=== PATIENT | female | born 1955 | race Caucasian/White ===

== ENCOUNTER → 2019-01-21 | Outpatient (CLI) | payer OTHER ==
[~2019-01-21] MED LIST: ATOR10TA9 PO; CBD cream TP; DULO30CA2 PO; [UNRECOGNIZED DRUG - OTHER] PO
[2019-01-21 12:55] LABS: MICROSCOPIC AUTO
[2019-01-21 12:59] LABS: CULTURE INDICATED? YES
[2019-01-21 13:00] LABS: INTERNATIONAL NORMALIZED RATIO 0.92 (0.93-1.1); PROTHROMBIN TIME 9.7 Seconds (9.6-11.5)
[2019-01-21 13:04] LABS: BASOPHILS # (AUTO) 0.04 x10^3/uL (0-0.1); BASOPHILS % (AUTO) 1 % (0-1); EOSINOPHILS # (AUTO) 0.26 x10^3/uL (0-0.4); EOSINOPHILS % (AUTO) 5 % (1-7); LYMPHOCYTES % (AUTO) 41 % (22-44); MD NO; MEAN CORPUSCULAR HEMOGLOBIN 31.6 pg (27.0-34.8); MEAN CORPUSCULAR HGB CONC 33.2 g/dL (32.4-35.8); MEAN CORPUSCULAR VOLUME 95.4 fL (80-100); MEAN PLATELET VOLUME 7.9 fL (7.4-10.4); MONOCYTES # (AUTO) 0.32 x10^3/uL (0.2-0.8); MONOCYTES % (AUTO) 6 % (2-9); NEUTROPHILS # (AUTO) 2.83 x10^3/uL (1.8-6.8); NEUTROPHILS % (AUTO) 48 % (42-75); PLATELET COUNT 277 x10^3/uL (130-400); RED BLOOD COUNT 4.25 x10^6/uL (3.82-5.3); RED CELL DISTRIBUTION WIDTH 13.1 % (9.6-15.2)
[2019-01-21 13:21] LABS: ANION GAP 5 mmol/L (5-15); CALCIUM 9.5 mg/dL (8.5-10.1); CHLORIDE 106 mmol/L (98-107)
[2019-01-21 13:23] LABS: CREATININE 0.75 mg/dL (0.55-1.02)
== END | disposition home or self-care (01) ==
LOC: STAR 11:41
PROVIDERS: ATTEND Neurological Surgery
DX: Z01.818 Encounter for other preprocedural examination (principal); M47.816 Spondylosis without myelopathy or radiculopathy, lumbar region; M85.88 Other specified disorders of bone density and structure, other site; Z87.891 Personal history of nicotine dependence
CPT/HCPCS: 36415; 72110; 80048; 81001; 85025; 85610; 85730; 87086; 93005

== ENCOUNTER 2019-02-15 06:42 | Inpatient (IN) | payer BC, OTHER ==
[~2019-02-15] VITALS: Ht 160 cm; Wt 71.5 kg
[~2019-02-15 06:42] MED LIST changes: -CEFAZOLIN 1,000 MG ONE; -DEXAMETHASONE 4 MG/ML, 1ML ONE; -FENTANYL PF 100 MCG/2ML ONE; -FENTANYL PF 250 MCG/5ML ONE; -GLYCOPYRROLATE 0.2MG/1ML, 5ML ONE; -HYDR-36 PO; -MIDAZOLAM 1 MG/ML, 2ML ONE; -NEOSTIGMINE 1 MG/ML, 10ML ONE; -ONDANSETRON 2MG/ML, 2ML ONE; -PROPOFOL 10 MG/ML, 20ML ONE; -PROPOFOL 100 ML ONE; -PROPOFOL 50 ML ONE; -ROCURONIUM 10MG/ML,5ML ONE; -SUCCINYLCHOLINE 20 MG/ML, 10ML ONE
[2019-02-15] MEDS ORDERED: EPINEPHRINE 1 MG/ML, 1ML ONE (06:53)
[2019-02-15] MEDS ORDERED: BUPIVACAINE/PF 0.5% ONE (06:53)
[2019-02-15] MEDS ORDERED: BACITRACIN 50,000 UNIT ONE (06:53)
[2019-02-15] MEDS ORDERED: VANCOMYCIN 1,000 MG ONE (06:53)
[2019-02-15] MEDS ORDERED: THROMBIN 5,000 UNIT VIAL TP ONE (06:53)
[2019-02-15] MEDS ORDERED: SCOPOLAMINE PATCH, 1.5MG PATCH.TD72 TD ONE (08:00)
[2019-02-15] MEDS ORDERED: GABAPENTIN 300 MG CAPSULE PO ONE (08:00)
[2019-02-15] MEDS ORDERED: ACETAMINOPHEN 500 MG TABLET PO ONE (08:00)
[2019-02-15] MEDS ORDERED: HYDR-36 PO (08:59)
[2019-02-15] MEDS: LACTATED RINGERS 1,000 ML IV SCH ×2 (09:17→11:36)
[2019-02-15] MEDS ORDERED: BUPIVACAINE/PF 0.25% ONE ×2 (11:25→12:50)
[2019-02-15] MEDS ORDERED: ROCURONIUM 10 MG/ML,10ML ONE (12:21)
[2019-02-15] MEDS ORDERED: CEFAZOLIN 1,000 MG ONE (12:21)
[2019-02-15] MEDS ORDERED: PROPOFOL 10 MG/ML, 50ML ONE (12:21)
[2019-02-15] MEDS ORDERED: NEOSTIGMINE 1 MG/ML, 10ML ONE (12:21)
[2019-02-15] MEDS ORDERED: ONDANSETRON 2MG/ML, 2ML ONE (12:21)
[2019-02-15] MEDS ORDERED: GLYCOPYRROLATE 0.2MG/1ML, 5ML ONE (12:21)
[2019-02-15] MEDS ORDERED: DEXAMETHASONE 4 MG/ML, 1ML ONE (12:21)
[2019-02-15] MEDS ORDERED: PHENYLEPHRINE 10 MG/ML ONE (12:21)
[2019-02-15] MEDS ORDERED: LABETALOL 5MG/ML, 20ML IV PRN (12:30)
[2019-02-15] MEDS ORDERED: PROMETHAZINE 25 MG/ML, 1ML IV PRN (12:30)
[2019-02-15] MEDS ORDERED: HALOPERIDOL 5 MG/ML IV PRN (12:30)
[2019-02-15] MEDS ORDERED: MORPHINE SULFATE 4 MG/ML, 1ML IVPush PRN (12:30)
[2019-02-15] MEDS ORDERED: FENTANYL PF 100 MCG/2ML IV PRN (12:30)
[2019-02-15] MEDS ORDERED: OXYcodone 5 MG/5 ML ORAL.SOL UDC PO PRN (12:30)
[2019-02-15] MEDS ORDERED: hydrALAzine 20 MG/ML, 1ML IV PRN (12:30)
[2019-02-15] MEDS ORDERED: MEPERIDINE/PF 25MG/ML,1ML IVPush PRN (12:30)
[2019-02-15] MEDS ORDERED: BISACODYL 10 MG SUPP PR PRN (16:00)
[2019-02-15] MEDS ORDERED: PROMETHAZINE 25 MG/ML, 1ML IM PRN (16:00)
[2019-02-15] MEDS ORDERED: ONDANSETRON 2MG/ML, 2ML IVPush PRN (16:00)
[2019-02-15] MEDS ORDERED: MEPERIDINE/PF 100 MG/ML IM PRN (16:00)
[2019-02-15] MEDS ORDERED: DIPHENHYDRAMINE 50 MG/ML, 1ML IVPush PRN (16:00)
[2019-02-15] MEDS ORDERED: HYDROmorphone 1 MG/ML, 1ML INJ IVPush PRN ×2 (16:00→18:30)
[2019-02-15] MEDS ORDERED: HYDROmorphone PCA 30 MG/30 ML IV PRN (16:00)
[2019-02-15] MEDS ORDERED: MAGNESIUM HYDROXIDE 8%, 30ML UDC PO PRN (16:00)
[2019-02-15] MEDS ORDERED: HYDROmorphone 1 MG/ML, 1ML INJ ONE (16:19)
[2019-02-15] MEDS ORDERED: OXYcodone 5 MG/5 ML ORAL.SOL UDC ONE (16:19)
[2019-02-15] MEDS: HYDROmorphone 2 MG/ML, 1ML IVPush PRN ×2 (16:20→16:40)
[2019-02-15] MEDS ORDERED: MEPERIDINE/PF 25MG/ML,1ML ONE (16:40)
[2019-02-15] MEDS ORDERED: TIZANIDINE 2MG TABLET PO PRN (18:30)
[2019-02-15] MEDS ORDERED: PHARMACY MAY ADJ FOR RENAL FX MC PRN (18:30)
[2019-02-15] MEDS: NS + 20MEQ KCL 1,000 ML IV SCH (18:34)
[2019-02-15 20:00] VITALS: BP 96/55
[2019-02-15] MEDS: CEFAZOLIN PMX 1GM/50ML 50 ML IVPB SCH (20:51)
[2019-02-15] MEDS: ATORVASTATIN 10 MG TABLET PO SCH (20:53)
[2019-02-15] MEDS: SODIUM CHLORIDE FLUSH 10ML SYR IVF SCH (21:00)
[2019-02-16] VITALS (7 sets, daily range): BP systolic 77–113; BP diastolic 38–68
[2019-02-16] MEDS: CEFAZOLIN PMX 1GM/50ML 50 ML IVPB SCH (04:45)
[2019-02-16] MEDS: NS + 20MEQ KCL 1,000 ML IV SCH ×2 (05:16→17:06)
[2019-02-16 06:37] LABS: ANION GAP 7 mmol/L (5-15); CALCIUM 8.1 mg/dL (8.5-10.1); CHLORIDE 110 mmol/L (98-107); CREATININE 0.77 mg/dL (0.55-1.02)
[2019-02-16 06:45] LABS: BASOPHILS # (AUTO) 0.02 x10^3/uL (0-0.1); BASOPHILS % (AUTO) 0 % (0-1); EOSINOPHILS % (AUTO) 0 % (1-7); LYMPHOCYTES # (AUTO) 1.24 x10^3/uL (1-3.4); LYMPHOCYTES % (AUTO) 15 % (22-44); MD NO; MEAN CORPUSCULAR HEMOGLOBIN 32.3 pg (27.0-34.8); MEAN CORPUSCULAR HGB CONC 33.4 g/dL (32.4-35.8); MEAN CORPUSCULAR VOLUME 96.8 fL (80-100); MEAN PLATELET VOLUME 7.4 fL (7.4-10.4); MONOCYTES # (AUTO) 0.72 x10^3/uL (0.2-0.8); MONOCYTES % (AUTO) 9 % (2-9); NEUTROPHILS % (AUTO) 77 % (42-75); PLATELET COUNT 205 x10^3/uL (130-400); RED BLOOD COUNT 2.85 x10^6/uL (3.82-5.3); RED CELL DISTRIBUTION WIDTH 13.4 % (9.6-15.2)
[2019-02-16] MEDS: OXYcodone/APAP 10/325MG TABLET PO PRN ×4 (09:28→21:03)
[2019-02-16] MEDS: SODIUM CHLORIDE FLUSH 10ML SYR IVF SCH ×2 (09:29→21:03)
[2019-02-16] MEDS: SENNA/DOCUSATE TABLET PO SCH (09:29)
[2019-02-16] MEDS: DULOXETINE 30 MG CAPSULE.DR PO SCH (09:29)
[2019-02-16] MEDS ORDERED: TIZANIDINE 2MG TABLET PO PRN (09:30)
[2019-02-16] MEDS ORDERED: TIZANIDINE 4MG TABLET ONE (10:13)
[2019-02-16] MEDS ORDERED: TIZANIDINE 4MG TABLET PO ONE (11:00)
[2019-02-16] MEDS: DIAZEPAM 5 MG TABLET PO PRN (20:21)
[2019-02-16] MEDS: TIZANIDINE 4MG TABLET PO SCH (21:02)
[2019-02-16] MEDS: ATORVASTATIN 10 MG TABLET PO SCH (21:02)
[2019-02-17] MEDS: OXYcodone/APAP 10/325MG TABLET PO PRN ×5 (00:28→20:23)
[2019-02-17 02:30] VITALS: BP 94/47
[2019-02-17] MEDS: NS + 20MEQ KCL 1,000 ML IV SCH ×3 (03:18→23:00)
[2019-02-17] MEDS: DIAZEPAM 5 MG TABLET PO PRN (03:40)
[2019-02-17 06:25] LABS: BASOPHILS # (AUTO) 0.03 x10^3/uL (0-0.1); BASOPHILS % (AUTO) 1 % (0-1); EOSINOPHILS # (AUTO) 0.14 x10^3/uL (0-0.4); EOSINOPHILS % (AUTO) 2 % (1-7); LYMPHOCYTES # (AUTO) 1.71 x10^3/uL (1-3.4); LYMPHOCYTES % (AUTO) 24 % (22-44); MD NO; MEAN CORPUSCULAR HEMOGLOBIN 32.6 pg (27.0-34.8); MEAN CORPUSCULAR VOLUME 98.7 fL (80-100); MEAN PLATELET VOLUME 7.9 fL (7.4-10.4); MONOCYTES # (AUTO) 0.61 x10^3/uL (0.2-0.8); MONOCYTES % (AUTO) 9 % (2-9); NEUTROPHILS # (AUTO) 4.53 x10^3/uL (1.8-6.8); NEUTROPHILS % (AUTO) 65 % (42-75); PLATELET COUNT 167 x10^3/uL (130-400); RED CELL DISTRIBUTION WIDTH 13.6 % (9.6-15.2)
[2019-02-17 06:41] LABS: ANION GAP 3 mmol/L (5-15); CALCIUM 7.9 mg/dL (8.5-10.1); CHLORIDE 112 mmol/L (98-107)
[2019-02-17 06:42] LABS: CREATININE 0.76 mg/dL (0.55-1.02)
[2019-02-17 07:18] VITALS: BP 82/41
[2019-02-17] MEDS: TIZANIDINE 4MG TABLET PO SCH ×2 (08:34→20:23)
[2019-02-17] MEDS: SENNA/DOCUSATE TABLET PO SCH (08:34)
[2019-02-17] MEDS: DULOXETINE 30 MG CAPSULE.DR PO SCH (08:34)
[2019-02-17] MEDS: SODIUM CHLORIDE FLUSH 10ML SYR IVF SCH ×2 (08:35→22:29)
[2019-02-17 14:10] VITALS: BP 98/52
[2019-02-17 17:37] VITALS: BP 111/67
[2019-02-17 18:36] VITALS: BP 122/66
[2019-02-17] MEDS: ATORVASTATIN 10 MG TABLET PO SCH (20:22)
[2019-02-18 00:20] VITALS: BP 101/55
[2019-02-18] MEDS: OXYcodone/APAP 10/325MG TABLET PO PRN ×6 (00:35→20:13)
[2019-02-18 06:03] LABS: BASOPHILS # (AUTO) 0.03 x10^3/uL (0-0.1); BASOPHILS % (AUTO) 0 % (0-1); EOSINOPHILS # (AUTO) 0.21 x10^3/uL (0-0.4); EOSINOPHILS % (AUTO) 3 % (1-7); LYMPHOCYTES # (AUTO) 1.69 x10^3/uL (1-3.4); LYMPHOCYTES % (AUTO) 24 % (22-44); MD NO; MEAN CORPUSCULAR HEMOGLOBIN 32.9 pg (27.0-34.8); MEAN CORPUSCULAR HGB CONC 33.3 g/dL (32.4-35.8); MEAN CORPUSCULAR VOLUME 98.8 fL (80-100); MEAN PLATELET VOLUME 7.9 fL (7.4-10.4); MONOCYTES # (AUTO) 0.53 x10^3/uL (0.2-0.8); MONOCYTES % (AUTO) 8 % (2-9); NEUTROPHILS # (AUTO) 4.66 x10^3/uL (1.8-6.8); NEUTROPHILS % (AUTO) 65 % (42-75); PLATELET COUNT 192 x10^3/uL (130-400); RED BLOOD COUNT 2.71 x10^6/uL (3.82-5.3); RED CELL DISTRIBUTION WIDTH 13.2 % (9.6-15.2)
[2019-02-18 06:12] LABS: ANION GAP 6 mmol/L (5-15); CALCIUM 8.7 mg/dL (8.5-10.1); CHLORIDE 107 mmol/L (98-107)
[2019-02-18 06:14] LABS: CREATININE 0.61 mg/dL (0.55-1.02)
[2019-02-18 08:00] VITALS: BP 102/61
[2019-02-18] MEDS: TIZANIDINE 4MG TABLET PO SCH ×2 (09:07→20:13)
[2019-02-18] MEDS: SODIUM CHLORIDE FLUSH 10ML SYR IVF SCH ×2 (09:07→20:17)
[2019-02-18] MEDS: SENNA/DOCUSATE TABLET PO SCH (09:07)
[2019-02-18] MEDS: NS + 20MEQ KCL 1,000 ML IV SCH ×2 (09:07→17:33)
[2019-02-18] MEDS: DULOXETINE 30 MG CAPSULE.DR PO SCH (09:07)
[2019-02-18 15:07] VITALS: BP 100/65
[2019-02-18] MEDS: ATORVASTATIN 10 MG TABLET PO SCH (20:13)
[2019-02-18 22:08] VITALS: BP 64/35
[2019-02-18] MEDS ORDERED: SODIUM CHLORIDE 0.9%, 500ML IVBOLUS ONE (23:30)
[2019-02-18] MEDS ORDERED: SODIUM CHLORIDE 0.9% 1,000 ML IV SCH (23:30)
[2019-02-19 00:33] VITALS: BP 87/54
[2019-02-19] MEDS: OXYcodone/APAP 10/325MG TABLET PO PRN ×2 (04:42→08:45)
[2019-02-19 05:52] LABS: BASOPHILS # (AUTO) 0.04 x10^3/uL (0-0.1); BASOPHILS % (AUTO) 1 % (0-1); EOSINOPHILS # (AUTO) 0.24 x10^3/uL (0-0.4); EOSINOPHILS % (AUTO) 4 % (1-7); LYMPHOCYTES # (AUTO) 1.42 x10^3/uL (1-3.4); LYMPHOCYTES % (AUTO) 23 % (22-44); MD NO; MEAN CORPUSCULAR HEMOGLOBIN 32.6 pg (27.0-34.8); MEAN CORPUSCULAR HGB CONC 32.8 g/dL (32.4-35.8); MEAN CORPUSCULAR VOLUME 99.2 fL (80-100); MEAN PLATELET VOLUME 7.6 fL (7.4-10.4); MONOCYTES # (AUTO) 0.45 x10^3/uL (0.2-0.8); MONOCYTES % (AUTO) 7 % (2-9); NEUTROPHILS # (AUTO) 4.08 x10^3/uL (1.8-6.8); NEUTROPHILS % (AUTO) 66 % (42-75); PLATELET COUNT 201 x10^3/uL (130-400); RED BLOOD COUNT 2.44 x10^6/uL (3.82-5.3); RED CELL DISTRIBUTION WIDTH 13.4 % (9.6-15.2)
[2019-02-19 05:57] LABS: ANION GAP 5 mmol/L (5-15); CALCIUM 8.1 mg/dL (8.5-10.1); CHLORIDE 109 mmol/L (98-107); CREATININE 0.62 mg/dL (0.55-1.02)
[2019-02-19 07:57] VITALS: BP 133/76
[2019-02-19] MEDS: DULOXETINE 30 MG CAPSULE.DR PO SCH (08:45)
[2019-02-19] MEDS: SENNA/DOCUSATE TABLET PO SCH (08:45)
[2019-02-19] MEDS: SODIUM CHLORIDE FLUSH 10ML SYR IVF SCH (08:45)
[2019-02-19] MEDS: TIZANIDINE 4MG TABLET PO SCH (08:45)
[2019-02-19] MEDS ORDERED: OXYC-307 PO (09:41)
[2019-02-19] MEDS ORDERED: TIZA4TAB9 PO (09:42)
[2019-02-19] MEDS ORDERED: DIAZ2TAB PO (09:44)
[2019-02-19] MEDS ORDERED: DOCU-131 PO (09:44)
== END 2019-02-19 10:06 | disposition home or self-care (01) | DRG 460 ==
LOC: ORIP 06:42 → 3WST 17:54 → 4NE 02-17 17:30 → DCLOUNGE 02-19 09:39
PROVIDERS: ADMIT Neurological Surgery; ATTEND Neurological Surgery
PROC: 0SG30AJ Fusion of Lumbosacral Joint with Interbody Fusion Device, Posterior Approach, Anterior Column, Open Approach (ICD-10-PCS; 2019-02-15)
PROC: 01NB0ZZ Release Lumbar Nerve, Open Approach (ICD-10-PCS; 2019-02-15)
PROC: 01NR0ZZ Release Sacral Nerve, Open Approach (ICD-10-PCS; 2019-02-15)
PROC: 3E0U0GB Introduction of Recombinant Bone Morphogenetic Protein into Joints, Open Approach (ICD-10-PCS; 2019-02-15)
PROC: 8E0W0CZ Robotic Assisted Procedure of Trunk Region, Open Approach (ICD-10-PCS; 2019-02-15)
PROC: 0SG00AJ Fusion of Lumbar Vertebral Joint with Interbody Fusion Device, Posterior Approach, Anterior Column, Open Approach (ICD-10-PCS; principal; 2019-02-15 11:30)
DX: M43.16 Spondylolisthesis, lumbar region (principal); M48.061 Spinal stenosis, lumbar region without neurogenic claudication; M51.17 Intervertebral disc disorders with radiculopathy, lumbosacral region; Z87.891 Personal history of nicotine dependence; E78.5 Hyperlipidemia, unspecified; J45.909 Unspecified asthma, uncomplicated; E78.00 Pure hypercholesterolemia, unspecified; F41.9 Anxiety disorder, unspecified; F32.9 Major depressive disorder, single episode, unspecified; M19.90 Unspecified osteoarthritis, unspecified site
CPT/HCPCS: 36415; 72100; 80048; 85025; 95938; 95941; C1713; C1729; C1776; G0378; J0171; J0690; J1100; J1170; J2405; J2704; J2710; J3370; J3480; J3490; A4648; C1762; J2175; J2370; J7030; J7040; J7120

== ENCOUNTER → 2019-02-15 | Outpatient (CLI) | payer OTHER ==
[~2019-02-15] MED LIST changes: +CEFAZOLIN 1,000 MG ONE; +DEXAMETHASONE 4 MG/ML, 1ML ONE; +FENTANYL PF 100 MCG/2ML ONE; +FENTANYL PF 250 MCG/5ML ONE; +GLYCOPYRROLATE 0.2MG/1ML, 5ML ONE; +HYDR-36 PO; +MIDAZOLAM 1 MG/ML, 2ML ONE; +NEOSTIGMINE 1 MG/ML, 10ML ONE; +ONDANSETRON 2MG/ML, 2ML ONE; +PROPOFOL 10 MG/ML, 20ML ONE; +PROPOFOL 100 ML ONE; +PROPOFOL 50 ML ONE; +ROCURONIUM 10MG/ML,5ML ONE; +SUCCINYLCHOLINE 20 MG/ML, 10ML ONE
== END | disposition home or self-care (01) ==
LOC: RAD 06:39
PROVIDERS: ATTEND Neurological Surgery
CPT/HCPCS: 72131 ×2; J0330; J0690 ×2; J1100 ×2; J2250 ×2; J2405 ×2; J2704 ×2; J2710 ×2; J3010 ×2